=== PATIENT | female | born 1975 | race Caucasian/White ===

== ENCOUNTER 2016-07-05 13:01 | Emergency (ER) | payer OTHER ==
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
[2016-07-05] MEDS ORDERED: ACETAMINOPHEN 325 MG TABLET PO ONE (13:12)
[2016-07-05] MEDS ORDERED: OXYCODONE-ACETAMINOPHEN 5-325 MG TABLET PO ONE (14:33)
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
[2016-07-05 14:59] VITALS: BP 134/82
== END 2016-07-05 15:01 | disposition home or self-care (01) ==
LOC: ER 13:01
DX: S20.212A Contusion of left front wall of thorax, initial encounter (principal); M25.512 Pain in left shoulder; M79.1 Myalgia; V49.40XA Driver injured in collision with unspecified motor vehicles in traffic accident, initial encounter; Z91.013 Allergy to seafood
CPT/HCPCS: 99284; 73552; 73090; 73030; 70450; 72125; L0120